=== PATIENT | female | born 1995 | race American Indian/Alaskan Native ===

== ENCOUNTER 2022-02-04 04:51 | Emergency (ER) | payer OTHER ==
[2022-02-04] MEDS ORDERED: MORPHINE 2 MG/1 ML INJ IV NR (06:45)
[2022-02-04] MEDS ORDERED: SODIUM CHLORIDE 0.9% 1000 ML 1,000 ML IV ONE (06:46)
[2022-02-04] MEDS ORDERED: ONDANSETRON 4 MG/2 ML INJ IV NR (06:47)
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
[2022-02-04 07:23] LABS: Hematocrit 37.8 % (30.3-42.9); Hemoglobin 12.7 gm/dl (10.1-14.3); Mean Corpuscular HGB Conc 34 % (30-34); Mean Corpuscular Volume 92 fl (79-97); Platelet Count 187 K/mm3 (140-440); Red Blood Count 4.13 M/mm3 (3.65-5.03); Red Cell Distribution Width 13.6 % (13.2-15.2)
[2022-02-04 07:53] LABS: Alanine Aminotransferase 13 units/L (7-56); Albumin 4.6 g/dL (3.9-5); BUN/Creatinine Ratio 13; Blood Urea Nitrogen 10 mg/dL (7-17); Hemolysis Index 10
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
[2022-02-04] MEDS ORDERED: CYCLOBENZAPRINE 10 MG TAB PO ONE (11:34)
[2022-02-04 12:20] VITALS: BP 105/78
== END 2022-02-04 12:15 | disposition home or self-care (01) ==
LOC: ED 04:51
DX: S16.1XXA Strain of muscle, fascia and tendon at neck level, initial encounter (principal); S80.12XA Contusion of left lower leg, initial encounter; M25.512 Pain in left shoulder; M79.652 Pain in left thigh; F41.9 Anxiety disorder, unspecified; J45.909 Unspecified asthma, uncomplicated; Z79.899 Other long term (current) drug therapy; V87.7XXA Person injured in collision between other specified motor vehicles (traffic), initial encounter; Y93.89 Activity, other specified; Y92.488 Other paved roadways as the place of occurrence of the external cause; Y99.8 Other external cause status
CPT/HCPCS: 36415; 70450; 71260; 72125; 73030; 73552; 74177; 80053; 82550; 83690; 84484; 84703; 85027; 96361; 96374; 96375; 99285; J2270; J2405; J7030; Q9967